=== PATIENT | female | born 1990 | race Caucasian/White ===

== ENCOUNTER 2022-12-01 20:39 | Emergency (ER) | payer MEDICAID ==
[~2022-12-01] VITALS: Ht 157.5 cm; Wt 109.1 kg
[2022-12-01] MEDS ORDERED: HYDROCODONE/ACETAMINOPHEN 5-325 MG TABLET PO ONE (21:45)
[2022-12-01] MEDS ORDERED: HYDROmorphone HCL 2 MG/ML SYRINGE IM ONE (22:45)
[2022-12-01] MEDS ORDERED: KETOROLAC TROMETHAMINE 60 MG/2 ML VIAL IM ONE (22:45)
[2022-12-01] MEDS ORDERED: ONDANSETRON HCL 4 MG/2 ML VIAL IM ONE (22:45)
[2022-12-01 23:05] VITALS: BP 129/79
[2022-12-02] MEDS ORDERED: SODIUM CHLORIDE 0.9% 1,000 ML IV ONE (01:15)
[2022-12-02] MEDS ORDERED: ONDANSETRON HCL 4 MG/2 ML VIAL IVP ONE (01:15)
[2022-12-02 01:26] LABS: BASOPHILS % (AUTO) 1.1 % (0.0-2.0); EOSINOPHILS % (AUTO) 1.5 % (1.0-6.0); HEMATOCRIT 37.9 % (36-46); HEMOGLOBIN 12.9 g/dL (12.0-16.0); LYMPHOCYTES # (AUTO) 2.4 K/uL (1.0-4.8); LYMPHOCYTES % (AUTO) 25.8 % (22.0-44.0); MEAN CORPUSCULAR HEMOGLOBIN 28.1 pg (26.0-34.0); MEAN CORPUSCULAR VOLUME 83 fL (80-100); MONOCYTES # (AUTO) 0.5 K/uL (0.1-1.0); MONOCYTES % (AUTO) 5.9 % (2.0-9.0); NEUTROPHILS % (AUTO) 65.7 % (40.0-70.0); PLATELET COUNT (AUTO) 290 K/uL (150-450); RED BLOOD CELL COUNT(AUTO) 4.59 MIL/uL (4.00-5.20); RED CELL DISTRIBUTION WIDTH 15.4 % (11.5-14.5)
[2022-12-02 01:38] LABS: ANION GAP 12 mmol/L (8-16); CALCIUM, TOTAL 8.9 mg/dL (8.8-10.5); CARBON DIOXIDE 23 mmol/L (22-29); CHLORIDE 104 mmol/L (98-107); CREATININE 0.77 mg/dL (0.60-1.30); GLOMERULAR FILTR. RATE CALC > 60 mL/min (>60); GLUCOSE,RANDOM 110 mg/dL (70-110); POTASSIUM 3.6 mmol/L (3.5-5.1); SODIUM SERUM 139 mmol/L (136-145); UREA NITROGEN, BLOOD 13 mg/dL (7-18)
[2022-12-02 01:44] LABS: ALANINE AMINOTRANSFERASE 24 U/L (12-78); ALBUMIN 4.2 g/dL (3.4-5.0); ALKALINE PHOSPHATASE 77 U/L (46-116); ASPARTATE AMINOTRANSFERASE 20 U/L (15-37); BILIRUBIN,TOTAL 0.4 mg/dL (0.1-1.0); LIPASE 977 U/L (73-393); TOTAL PROTEIN, SERUM 7.7 g/dL (6.4-8.2)
[2022-12-02] MEDS ORDERED: BACL10TA PO (03:05)
[2022-12-02] MEDS ORDERED: PERCT PO (03:05)
== END 2022-12-02 03:05 | disposition left against medical advice (07) ==
LOC: EMS 20:42
DX: S13.4XXA Sprain of ligaments of cervical spine, initial encounter (principal); Z98.51 Tubal ligation status; Y04.0XXA Assault by unarmed brawl or fight, initial encounter; Y93.89 Activity, other specified; Y92.89 Other specified places as the place of occurrence of the external cause; Y99.8 Other external cause status
CPT/HCPCS: 99284; 80053; 83690; 84703; 85025; 36415; 81025; 96372; 96374; 71045; 96361; 72040; 73030; G0480; J1170; J1885; J2405 ×2; J7030

== ENCOUNTER 2023-12-07 20:29 | Emergency (ER) | payer MEDICAID ==
[~2023-12-07] VITALS: Ht 165.1 cm; Wt 94.5 kg
[~2023-12-07 20:29] MED LIST: AMOX1TAB16 PO; ASPI-1450 PO; CLOP75TA60 PO; GABA-1216 PO; OXYC-490 PO; VALA500T PO
[2023-12-07 20:35] VITALS: BP 132/75; PULSE 90; RESP 16; TEMP 98.8
[2023-12-07] MEDS: ACETAMINOPHEN 500 MG TABLET PO ONE (22:08)
[2023-12-07] MEDS: IBUPROFEN 600 MG TABLET PO ONE (22:08)
[2023-12-07] MEDS ORDERED: HYDR-4723 PO (22:09)
== END 2023-12-07 22:33 | disposition home or self-care (01) ==
LOC: EMS 20:30
DX: S62.607A Fracture of unspecified phalanx of left little finger, initial encounter for closed fracture (principal); I10 Essential (primary) hypertension; F17.210 Nicotine dependence, cigarettes, uncomplicated; Z98.51 Tubal ligation status; X58.XXXA Exposure to other specified factors, initial encounter; Y93.89 Activity, other specified; Y92.89 Other specified places as the place of occurrence of the external cause; Y99.8 Other external cause status
CPT/HCPCS: 99283

== ENCOUNTER 2024-03-06 13:44 | Emergency (ER) | payer MEDICAID ==
[~2024-03-06] VITALS: Ht 165.1 cm; Wt 90.0 kg
[~2024-03-06 13:44] MED LIST changes: +AMOX-457 PO; -AMOX1TAB16 PO; +HYDR-4062 PO
[2024-03-06 13:48] VITALS: TEMP 98.2
[2024-03-06] MEDS: TraMADol HCL 50 MG TABLET PO ONE (15:25)
[2024-03-06] MEDS: MORPHINE SULFATE 2 MG/ML SYRINGE IVP ONE (15:25)
[2024-03-06] MEDS: SODIUM CHLORIDE 0.9% 1,000 ML IV ONE (15:26)
[2024-03-06 15:32] LABS: EOSINOPHILS % (AUTO) 0.8 % (1.0-6.0); HEMATOCRIT 38.3 % (36-46); HEMOGLOBIN 12.4 g/dL (12.0-16.0); LYMPHOCYTES # (AUTO) 1.9 K/uL (1.0-4.8); LYMPHOCYTES % (AUTO) 34.2 % (22.0-44.0); MEAN CORPUSCULAR HEMOGLOBIN 26.8 pg (26.0-34.0); MEAN CORPUSCULAR HGB CONC 32.5 G/dL (31.0-37.0); MEAN CORPUSCULAR VOLUME 82 fL (80-100); MONOCYTES # (AUTO) 0.5 K/uL (0.1-1.0); MONOCYTES % (AUTO) 9.1 % (2.0-9.0); NEUTROPHILS # (AUTO) 3.1 K/uL (1.8-7.7); NEUTROPHILS % (AUTO) 54.9 % (40.0-70.0); PLATELET COUNT (AUTO) 290 K/uL (150-450); RED BLOOD CELL COUNT(AUTO) 4.65 MIL/uL (4.00-5.20); RED CELL DISTRIBUTION WIDTH 15.4 % (11.5-14.5); WHITE BLOOD COUNT (AUTO) 5.6 K/uL (4.5-11.0)
[2024-03-06 15:35] VITALS: BP 132/93; PULSE 72; RESP 16
[2024-03-06 15:38] LABS: ANION GAP 6 mmol/L (8-16); CARBON DIOXIDE 28 mmol/L (22-29); CHLORIDE 103 mmol/L (98-107); CREATININE 0.82 mg/dL (0.60-1.30); GLOMERULAR FILTR. RATE CALC > 60 mL/min (>60); GLUCOSE,RANDOM 87 mg/dL (70-110); POTASSIUM 4.4 mmol/L (3.5-5.1); SODIUM SERUM 137 mmol/L (136-145); UREA NITROGEN, BLOOD 14 mg/dL (7-18)
[2024-03-06 15:39] LABS: INR 1.2 (0.9-1.1); PROTHROMBIN TIME 12.2 SEC (9.4-11.6)
[2024-03-06 16:16] LABS: ERYTHROCYTE SEDIMENTATION RATE 15 MM/HR (0-20)
[2024-03-06 16:25] LABS: D-DIMER 0.79 mg/L FEU (0.00-0.50)
[2024-03-06] MEDS: METOCLOPRAMIDE HCL 5 MG/ML 2 ML VIAL IVP ONE (17:41)
[2024-03-06] MEDS: DiphenhydrAMINE HCL 50 MG/ML VIAL IVP ONE (17:41)
[2024-03-06] MEDS: KETOROLAC TROMETHAMINE 30 MG/ML VIAL IVP ONE (17:42)
== END 2024-03-06 18:55 | disposition left against medical advice (07) ==
LOC: EMS 13:46
DX: G43.909 Migraine, unspecified, not intractable, without status migrainosus (principal); I10 Essential (primary) hypertension; F17.210 Nicotine dependence, cigarettes, uncomplicated; Z98.51 Tubal ligation status
CPT/HCPCS: 99285; 96374; 70450; 96361; 80048; 84703; 85025; 85379; 85610; 85651; 36415; J2270; J7030; J1200; J1885; J2765

== ENCOUNTER 2024-05-24 23:30 | Emergency (ER) | payer MEDICAID ==
[~2024-05-24] VITALS: Ht 165.1 cm; Wt 90.9 kg
[2024-05-25 02:23] LABS: EOSINOPHILS % (AUTO) 1.7 % (1.0-6.0); HEMATOCRIT 36.8 % (36-46); HEMOGLOBIN 12.2 g/dL (12.0-16.0); LYMPHOCYTES # (AUTO) 1.4 K/uL (1.0-4.8); LYMPHOCYTES % (AUTO) 28.1 % (22.0-44.0); MEAN CORPUSCULAR HEMOGLOBIN 27.9 pg (26.0-34.0); MEAN CORPUSCULAR HGB CONC 33.3 G/dL (31.0-37.0); MEAN CORPUSCULAR VOLUME 84 fL (80-100); MONOCYTES # (AUTO) 0.5 K/uL (0.1-1.0); MONOCYTES % (AUTO) 9.1 % (2.0-9.0); NEUTROPHILS # (AUTO) 3.1 K/uL (1.8-7.7); NEUTROPHILS % (AUTO) 60.1 % (40.0-70.0); PLATELET COUNT (AUTO) 260 K/uL (150-450); RED BLOOD CELL COUNT(AUTO) 4.39 MIL/uL (4.00-5.20); RED CELL DISTRIBUTION WIDTH 16.6 % (11.5-14.5); WHITE BLOOD COUNT (AUTO) 5.1 K/uL (4.5-11.0)
[2024-05-25] MEDS: TraMADol HCL 50 MG TABLET PO ONE (02:23)
[2024-05-25 02:34] LABS: ANION GAP 10 mmol/L (8-16); CALCIUM, TOTAL 8.6 mg/dL (8.8-10.5); CARBON DIOXIDE 25 mmol/L (22-29); CHLORIDE 103 mmol/L (98-107); CREATININE 0.77 mg/dL (0.60-1.30); GLOMERULAR FILTR. RATE CALC > 60 mL/min (>60); GLUCOSE,RANDOM 88 mg/dL (70-110); POTASSIUM 3.9 mmol/L (3.5-5.1); SODIUM SERUM 138 mmol/L (136-145); UREA NITROGEN, BLOOD 12 mg/dL (7-18)
[2024-05-25 02:39] VITALS: BP 140/99; PULSE 64; RESP 17; TEMP 98.1; O2SAT 100
[2024-05-25] MEDS ORDERED: TRAM50TA5 PO (04:40)
[2024-05-25] MEDS: KETOROLAC TROMETHAMINE 30 MG/ML VIAL IM ONE (04:53)
== END 2024-05-25 05:15 | disposition home or self-care (01) ==
LOC: EMS 23:31
DX: I10 Essential (primary) hypertension (principal); M25.551 Pain in right hip; F12.90 Cannabis use, unspecified, uncomplicated; F17.210 Nicotine dependence, cigarettes, uncomplicated; F10.90 Alcohol use, unspecified, uncomplicated; Z79.82 Long term (current) use of aspirin; Z98.51 Tubal ligation status; Y90.9 Presence of alcohol in blood, level not specified
CPT/HCPCS: 99285; 80048; 85025; 36415; 93926; 93971; 73502; 96372; J1885

== ENCOUNTER 2024-08-07 07:05 | Emergency (ER) | payer MEDICAID ==
[~2024-08-07] VITALS: Ht 160 cm; Wt 95.0 kg
[~2024-08-07 07:05] MED LIST changes: +TRAM50TA5 PO
[2024-08-07 07:36] VITALS: TEMP 98.5
[2024-08-07 07:49] LABS: COVID AG,FIA SOURCE NASAL SWAB
[2024-08-07 08:34] LABS: SARS-COV2 (COVID) ANTIGEN,FIA Negative (Negative)
[2024-08-07 08:42] LABS: INFLUENZA TYPE A NEGATIVE FOR TYPE A (NEGATIVE)
[2024-08-07 08:45] LABS: BASOPHILS % (AUTO) 0.5 % (0.0-2.0); EOSINOPHILS % (AUTO) 0.1 % (1.0-6.0); HEMATOCRIT 39.6 % (36-46); HEMOGLOBIN 13.4 g/dL (12.0-16.0); LYMPHOCYTES # (AUTO) 0.4 K/uL (1.0-4.8); LYMPHOCYTES % (AUTO) 8.1 % (22.0-44.0); MEAN CORPUSCULAR HEMOGLOBIN 29.4 pg (26.0-34.0); MEAN CORPUSCULAR VOLUME 87 fL (80-100); MONOCYTES # (AUTO) 0.3 K/uL (0.1-1.0); MONOCYTES % (AUTO) 6.1 % (2.0-9.0); PLATELET COUNT (AUTO) 212 K/uL (150-450); RED BLOOD CELL COUNT(AUTO) 4.57 MIL/uL (4.00-5.20); RED CELL DISTRIBUTION WIDTH 15.9 % (11.5-14.5); WHITE BLOOD COUNT (AUTO) 4.7 K/uL (4.5-11.0)
[2024-08-07 08:47] LABS: NEUTROPHILS % (AUTO) 85.2 % (40.0-70.0)
[2024-08-07 08:54] LABS: INFLUENZA TYPE B POSITIVE FOR TYPE B (NEGATIVE)
[2024-08-07 08:58] LABS: ANION GAP 11 mmol/L (8-16); CALCIUM, TOTAL 8.6 mg/dL (8.8-10.5); CARBON DIOXIDE 23 mmol/L (22-29); CHLORIDE 105 mmol/L (98-107); CREATININE 0.98 mg/dL (0.60-1.30); GLOMERULAR FILTR. RATE CALC > 60 mL/min (>60); GLUCOSE,RANDOM 88 mg/dL (70-110); POTASSIUM 3.4 mmol/L (3.5-5.1); SODIUM SERUM 139 mmol/L (136-145); UREA NITROGEN, BLOOD 11 mg/dL (7-18)
[2024-08-07] MEDS ORDERED: ONDA-243 PO (08:59)
[2024-08-07] MEDS ORDERED: OSEL75CA45 PO (08:59)
[2024-08-07] MEDS: OxyCODONE HCL/ACETAMINOPHEN 5-325 MG TABLET PO ONE (09:09)
[2024-08-07] MEDS: BENZONATATE 100 MG CAPSULE PO ONE (09:09)
[2024-08-07 09:17] LABS: TROPONIN I-HIGH SENSITIVITY 4 ng/L (<51)
[2024-08-07] MEDS: ONDANSETRON 4 MG RAPDIS TABLET PO ONE (10:51)
[2024-08-07] MEDS: POTASSIUM CHLORIDE 20 MEQ ER TABLET PO ONE (10:51)
[2024-08-07 12:28] VITALS: BP 157/98; PULSE 73; RESP 18; O2SAT 96
[2024-08-07] MEDS: OSELTAMIVIR PHOSPHATE 75 MG CAPSULE PO ONE (12:50)
== END 2024-08-07 12:55 | disposition home or self-care (01) ==
LOC: EMS 07:05
DX: J11.1 Influenza due to unidentified influenza virus with other respiratory manifestations (principal); E87.6 Hypokalemia; I10 Essential (primary) hypertension; I34.1 Nonrheumatic mitral (valve) prolapse; F17.210 Nicotine dependence, cigarettes, uncomplicated; F12.90 Cannabis use, unspecified, uncomplicated; Z98.51 Tubal ligation status; Z20.822 Contact with and (suspected) exposure to COVID-19
CPT/HCPCS: 71045; 80048; 84484; 85025; 87804; 93005; 99285; 99406; 36415-L1; 36415-TC